=== PATIENT | female | born 1990 | race African-American/Black ===

== ENCOUNTER 2016-08-07 16:06 | Observation (INO) | payer OTHER ==
[2015-07-30 23:15] VITALS: BP 128/82
[2016-08-07] MEDS ORDERED: HYDROXYZINE PAMOATE 25 MG CAPSULE PO PRN (17:45)
== END 2016-08-07 20:10 | disposition home or self-care (01) ==
LOC: 3 SO LND 16:06
PROVIDERS: ADMIT Family Medicine; ATTEND Family Medicine
DX: O9A.213 Injury, poisoning and certain other consequences of external causes complicating pregnancy, third trimester (principal); R10.9 Unspecified abdominal pain; M54.9 Dorsalgia, unspecified; W18.2XXA Fall in (into) shower or empty bathtub, initial encounter; Y92.9 Unspecified place or not applicable; Z3A.00 Weeks of gestation of pregnancy not specified
CPT/HCPCS: G0378; G0379; Q0177

== ENCOUNTER 2016-08-13 04:32 | Observation (INO) | payer OTHER ==
[2015-07-30 23:15] VITALS: BP 128/82
[2016-08-13] MEDS: IV RINGERS,LACTATED 1000ML 1,000 ML IV SCH ×2 (06:13→08:34)
[2016-08-13] MEDS ORDERED: ONDANSETRON PF 4 MG/2 ML VIAL. IV PRN (06:45)
[2016-08-13] MEDS ORDERED: HYDROCODONE/APAP 5/325MG TABLET. PO ONE (11:30)
== END 2016-08-13 11:21 | disposition home or self-care (01) ==
LOC: 3 SO LND 04:32
PROVIDERS: ADMIT Family Medicine; ATTEND Family Medicine
DX: O62.9 Abnormality of forces of labor, unspecified (principal); Z3A.00 Weeks of gestation of pregnancy not specified
CPT/HCPCS: 96361; 96374; G0378; G0379; J2405; J7120

== ENCOUNTER 2016-08-16 21:19 | Inpatient (IN) | payer OTHER ==
[~2016-08-16] VITALS: Ht 154.9 cm; Wt 110.2 kg
[2016-08-16 21:38] LABS: BILIRUBIN,URINE NEGATIVE (NEG); GLUCOSE,URINE NEGATIVE (NEG); NITRITE,URINE NEGATIVE (NEG); PH,URINE 6.5; PROTEIN,URINE NEGATIVE (NEG-TRACE)
[2016-08-16 21:48] LABS: BACTERIA,URINE FEW /HPF (0-FEW); RBC,URINE 0 /HPF (0-2); SQUAMOUS EPITHELIAL CELL,UR MOD /LPF
[2016-08-16 22:09] LABS: NEG OBC AMNIO NEG; POS OBC AMNIO POS
[2016-08-16] MEDS ORDERED: ACETAMINOPHEN 325 MG TABLET. PO PRN (22:30)
[2016-08-16] MEDS ORDERED: OXYTOCIN 30 UNIT/500 ML PREMIX 500 ML IV PRN (22:30)
[2016-08-16] MEDS ORDERED: ONDANSETRON PF 4 MG/2 ML VIAL. IV PRN (22:30)
[2016-08-16] MEDS ORDERED: 0.9 % SODIUM CHLORIDE 10 ML DISP.SYRIN. IV PRN (22:30)
[2016-08-16] MEDS ORDERED: AMPICILLIN SODIUM 2 GM in IV NORMAL SALINE 100ML 100 ML IV ONE (22:30)
[2016-08-16] MEDS ORDERED: TERBUTALINE 1 MG/ML VIAL. SQ PRN (22:30)
[2016-08-16] MEDS ORDERED: BUTORPHANOL 2 MG/ML VIAL. IV PRN (22:30)
[2016-08-16] MEDS ORDERED: LIDOCAINE 1% PF 30 ML VIAL. INJ PRN (22:30)
[2016-08-16] MEDS ORDERED: ZOLPIDEM 5 MG TABLET. PO PRN (22:30)
[2016-08-16] MEDS: IV RINGERS,LACTATED 1000ML 1,000 ML IV SCH (22:44)
[2016-08-16 23:01] LABS: HEMATOCRIT 33.5 % (36.0-47.0); HEMOGLOBIN 11.2 g/dL (12.0-15.5); RED BLOOD COUNT 3.55 x10^6/uL (3.50-5.40); RED CELL DISTRIBUTION WIDTH 13.7 % (11.5-14.5); WHITE BLOOD COUNT 10.8 x10^3/uL (4.0-11.0)
[2016-08-16 23:19] VITALS: BP 137/77
[2016-08-17] MEDS: AMPICILLIN SODIUM 1 GM in IV NORMAL SALINE 50ML 50 ML IV SCH ×3 (02:33→15:17)
[2016-08-17] MEDS: OXYTOCIN 30 UNIT/500 ML PREMIX 500 ML IV PRN ×2 (06:06→10:47)
[2016-08-17] MEDS: IV RINGERS,LACTATED 1000ML 1,000 ML IV SCH ×2 (06:06→18:02)
--- NOTE | 2016-08-17 06:55 | PDOC1 ---
OB - History Hx of Present Care: Limited Care Ultrasounds: Normal mid trimester US Obstetrical Complications: None Medical Complications: None Past Family/Social History * Past Medical, Surgical, Family and Obstetric Histories reviewed from chart. Blood Type: B+ Rubella: Immune RPR/VDRL: Negative GBS Status: Positive HBsAG: Negative OB - Chief Complaint & HPI Date of Admission: Date of Admission: Aug 16, 2016 at 21:19 Chief Complaint/History : 4 Para: 3 EDC: Aug 28, 2016 EGA: 38.3 Reason for admission: rupture of membranes Admission Nurse Assessment Rev: No Problems: OB - Admission Exam Physical Exam Vitals: VS - Last 72 Hours, by Label Date Time Temp Pulse Resp B/P Pulse Ox O2 Delivery O2 Flow Rate FiO2 08/16/16 23:19 98.1 100 18 137/77 Room Air 98.1 HEENT: Normal, Nasal Mucosa Normal, Oropharynx Normal, Moist Membranes, Fontanelles Normal Heart: Regular Rate Lungs: Clear, Equal Abdomen: Gravid Extremities: Normal Pulses, No tenderness or swelling Reflexes: Normal Cervical Dilatation: 3cm Effacement: 50% Station: -2 Membranes: Ruptured Amniotic Fluid: Clear Heart Rate: Normal Accelerations: Accelerations Present Decelerations: No decelerations Short Term Variability: Present Reading Assistant Variability: Moderate Contractions on Admission: None A/P Pt is a 25yo @ 38.3wga admitted with SROM 1)SROM- pitocin started this am. 2)GBS POS- Ampicillin started last night Problems: PATRIZIA BOURGEOIS MD Aug 17, 2016 06:55
[2016-08-17] MEDS ORDERED: L&D EPIDURAL CASSETTE 100 ML EP ONE (17:23)
[2016-08-17] MEDS ORDERED: FENTANYL PF 100 MCG/2 ML VIAL. ONE (17:58)
[2016-08-17] MEDS ORDERED: LIDOCAINE 2% PF Vial for OR 5 ML VIAL. ONE (18:15)
[2016-08-17] MEDS ORDERED: ONDANSETRON PF 4 MG/2 ML VIAL. IV PRN (18:30)
[2016-08-17] MEDS ORDERED: ROPIVacaine 0.2% PF 10 ML VIAL. EPI ONE (18:30)
[2016-08-17] MEDS ORDERED: FENTANYL PF 100 MCG/2 ML VIAL. EPI ONE (18:30)
[2016-08-17] MEDS ORDERED: NALOXONE 0.4 MG/ML VIAL. IV PRN (18:30)
[2016-08-17] MEDS ORDERED: L&D EPIDURAL CASSETTE 100 ML EP PRN (18:30)
[2016-08-17] MEDS ORDERED: EPHEDRINE PF IN SALINE 50 MG/5 ML DISP.SYRIN. IV PRN (18:30)
--- NOTE | 2016-08-17 18:56 | PDOC ---
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
[2016-08-17] MEDS ORDERED: PHENYLEPH/MINERAL OIL/PETROLAT RECTAL OINTMENT 28GM TUBE. RC PRN (21:00)
[2016-08-17] MEDS ORDERED: ACETAMINOPHEN 325 MG TABLET. PO PRN (21:00)
[2016-08-17] MEDS ORDERED: HYDROCORTISONE 1% TOPICAL OINTMENT 30GM TUBE. TP PRN (21:00)
[2016-08-17] MEDS ORDERED: MAG HYDROX/ALUMINUM HYD/SIMETH 30 ML ORAL.SUSP PO PRN (21:00)
[2016-08-17] MEDS ORDERED: DIPHENHYDRAMINE HCL 25 MG CAPSULE PO PRN (21:00)
[2016-08-17] MEDS ORDERED: SIMETHICONE 80 MG TAB.CHEW PO PRN (21:00)
[2016-08-17] MEDS ORDERED: BENZOCAINE 20% TOPICAL AEROSOL SPRAY 57GM CAN. TP PRN (21:00)
[2016-08-17] MEDS ORDERED: OXYCODONE/APAP 5/325 TABLET. PO PRN ×2 (21:00)
[2016-08-17] MEDS ORDERED: DOCUSATE SODIUM 100 MG CAPSULE PO PRN (21:00)
[2016-08-17] MEDS ORDERED: MAGNESIUM HYDROXIDE 2,400 MG/30 ML ORAL.SUSP. PO PRN (21:00)
[2016-08-17] MEDS ORDERED: OXYTOCIN 30 UNIT/500 ML PREMIX 500 ML IV PRN (21:00)
[2016-08-17] MEDS: IBUPROFEN 800 MG TABLET. PO PRN (21:06)
[2016-08-17 21:10] VITALS: BP 127/68
[2016-08-17 22:13] VITALS: BP 119/59
[2016-08-17] MEDS ORDERED: DIPHTH,PERTUSS(ACELL),TET TOX 0.5 ML DISP.SYRIN. VAX IM ONE (23:00)
[2016-08-18 02:02] VITALS: BP 106/52
[2016-08-18 04:44] VITALS: BP 116/75
[2016-08-18] MEDS ORDERED: FERROUS SULFATE 325 MG TABLET PO SCH (08:00)
--- NOTE | 2016-08-18 11:37 | PDOC ---
OB Progress Note Date of Service 08/18/16 Time of Evaluation 1130 Date: 08/17/16 Time: 1839 Notes Pt says that she is doing well. Had large blood clot last night. Bleeding about same as period. is bottlefeeding. Pain is well controlled. OB VITAL SIGNS: Temperature (97.9F), Blood Pressure (116/75), Pulse (74) Lab Laboratory Tests Test 08/16/16 21:25 08/16/16 21:40 08/16/16 22:40 08/18/16 04:30 Urine Collection Type Unknown Urine Color Yellow Urine Clarity Clear Urine pH 6.5 Urine Specific [place] 1.025 Urine Protein Negativemg/dL (NEG-TRACE) Urine Glucose (UA) Negativemg/dL (NEG) Urine Ketones (Stick) Negativemg/dL (NEG) Urine Blood Negative (NEG) Urine Nitrite Negative (NEG) Urine Bilirubin Negative (NEG) Urine Urobilinogen Dipstick 1.0mg/dL (0.2 mg/dL) Urine Leukocyte Esterase Small (NEG) Urine RBC 0/HPF (0-2) Urine WBC 5-10/HPF (0-4) Urine Squamous Epithelial Cells Mod/LPF Urine Bacteria Few/HPF (0-FEW) Urine Mucus Marked/LPF Amniotic Fluid Swab Test Positive White Blood Count 10.8x10^3/uL (4.0-11.0) Red Blood Count 3.55x10^6/uL (3.50-5.40) Hemoglobin 11.2g/dL (12.0-15.5) Hematocrit 33.5% (36.0-47.0) 34.2% (36.0-47.0) Mean Corpuscular Volume 95fL (79-100) Mean Corpuscular Hemoglobin 32pg (25-35) Mean Corpuscular Hemoglobin Concent 34g/dL (31-37) Red Cell Distribution Width 13.7% (11.5-14.5) Platelet Count 230x10^3/uL (140-400) Laboratory Tests Test 08/18/16 04:30 Hematocrit 34.2% (36.0-47.0) Medications Current Medications Lactated Ringer's (Iv Lactated Ringers) 1,000 ml @ 125 mls/hr Q8H IV Last administered on 08/17/16t 18:02; Start 08/16/16 at 21:30; Stop 08/17/16 at 20:49 ; Status DC Sodium Chloride (Normal Saline Flush) 3 ml QSHIFT PRN IV AFTER MEDS AND BLOOD DRAWS; Start 08/16/16 at 22:30 Butorphanol Tartrate (Stadol) 2 mg PRN Q1HR PRN IV Severe labor pain; Start at 22:30; Stop 08/17/16 at 20:49; Status DC Acetaminophen (Tylenol) 650 mg PRN Q6HRS PRN PO MILD PAIN / TEMP; Start at 22:30 Ondansetron HCl (Zofran) 4 mg PRN Q4HRS PRN IV NAUSEA/VOMITING; Start 08/16/16 at 22:30; Stop 08/17/16 at 20:49; Status DC Zolpidem Tartrate (Ambien) 5 mg PRN QHS PRN PO INSOMNIA Last administered on 01:09; Start 08/16/16 at 22:30 Terbutaline Sulfate (Brethine) 0.25 mg 1X PRN PRN SQ SEE COMMENTS; Start at 22:30; Stop 08/17/16 at 20:49; Status DC Lidocaine HCl 30 ml 30 ml 1X PRN PRN INJ SEE COMMENTS; Start 08/16/16 at 22:30 ; Stop 08/17/16 at 20:49; Status DC Ampicillin Sodium 2 gm/Sodium Chloride 100 ml @ 200 mls/hr 1X ONCE IV Last administered on 08/16/16 22:44; Start 08/16/16 at 22:30; Stop 08/17/16 at 20:49 ; Status DC Ampicillin Sodium 1 gm/Sodium Chloride 50 ml @ 100 mls/hr Q4H IV Last administered on 08/17/16 15:17; Start 08/17/16 at 02:30; Stop 08/17/16 at 20:49 ; Status DC Oxytocin/Sodium Chloride 500 ml @ 0 mls/hr CONT PRN IV SEE I/O RECORD Last administered on 08/17/16 10:47; Start 08/16/16 at 22:30; Stop 08/17/16 at 20:49 ; Status DC Oxytocin/Sodium Chloride 500 ml @ 0 mls/hr CONT PRN PRN IV Post delivery bleeding; Start 08/16/16 at 22:30 Ropivacaine/ Fentanyl/NS (Bkjlnzmv-Acvkn-HI 3 Mcg-0.1%) 100 ml @ As Directed STK-MED ONCE EP Last administered on 08/17/16t 18:02; Start 08/17/16 at 17:23; Stop 08/17/16 at 20:49; Status DC Fentanyl Citrate (Fentanyl 2ml Vial) 100 mcg STK-MED ONCE .ROUTE ; Start at 17:58; Stop 08/17/16 at 20:49; Status DC Lidocaine HCl (Lidocaine Pf 2% Vial) 5 ml STK-MED ONCE .ROUTE ; Start 08/17/16 at 18:15; Stop 08/17/16 at 20:49; Status DC Ephedrine Sulfate 10 mg PRN Q2MIN PRN IV IF SBP<90; Start 08/17/16 at 18:30; Stop 08/17/16 at 20:49; Status DC Naloxone HCl (Narcan) 0.04 mg PRN Q1MIN PRN IV SEE COMMENTS; Start 08/17/16 at 18:30; Stop 08/17/16 at 20:49; Status DC Fentanyl Citrate 100 mcg 100 mcg 1X ONCE EPI ; Start 08/17/16 at 18:30; Stop at 20:49; Status DC Ropivacaine/ Fentanyl/NS (Nqpluisi-Wnwvo-MO 3 Mcg-0.1%) 100 ml @ 14 mls/hr CONT PRN EP PAIN; Start 08/17/16 at 18:30; Stop 08/17/16 at 20:49; Status DC Ondansetron HCl (Zofran) 4 mg PRN Q6HRS PRN IV NAUSEA/VOMITING; Start 08/17/16 at 18:30 Ropivacaine 20 ml 20 ml 1X ONCE EPI ; Start 08/17/16 at 18:30; Stop 08/17/16 at 20:49; Status DC Oxytocin/Sodium Chloride (Oxytocin Premix Infusion) 500 ml @ 62.5 mls/hr CONT PRN IV SEE I/O RECORD; Start 08/17/16 at 21:00; Stop 08/18/16 at 04:59; Status DC Acetaminophen (Tylenol) 650 mg PRN Q6HRS PRN PO MILD PAIN / TEMP; Start at 21:00 Ibuprofen (Motrin) 800 mg PRN Q8HRS PRN PO INFLAMMATION/PAIN PREVENTION Last administered on 08/17/16t 21:06; Start 08/17/16 at 21:00 Docusate Sodium (Colace) 100 mg PRN BID PRN PO CONSTIPATION; Start 08/17/16 at 21:00 Magnesium Hydroxide (Milk Of Magnesia) 2,400 mg PRN DAILY PRN PO CONSTIPATION; Start 08/17/16 at 21:00 Al Hydroxide/Mg Hydroxide (Mylanta Plus Xs) 30 ml PRN Q4HRS PRN PO HEARTBURN / GAS; Start 08/17/16 at 21:00 Simethicone (Gas-X) 80 mg PRN AFTMEALHC PRN PO GAS / BLOATING; Start 08/17/16 at 21:00 Diphenhydramine HCl (Benadryl) 25 mg PRN Q6HRS PRN PO ITCHING; Start 08/17/16 at 21:00 Benzocaine (Americaine) 1 spray PRN QID PRN TP TOPICAL PAIN; Start 08/17/16 at 21:00 Phenyleph/Shark Oil/Min Oil/Petrol (Preparation H) 1 valeria PRN QID PRN RC RECTAL PAIN; Start 08/17/16 at 21:00 Hydrocortisone (Cortaid) 1 valeria PRN QID PRN TP PERINEAL PAIN; Start 08/17/16 at 21:00 Ferrous Sulfate (Feosol) 325 mg BIDWMEALS PO ; Start 08/18/16 at 08:00 Info (Do NOT chart on this placeholder) 1 ea 1X PRN PRN MC SEE COMMENTS; Start 08/17/16 at 21:00 Oxycodone/ Acetaminophen (Percocet 5/325) 1 tab PRN Q4HRS PRN PO MILD PAIN; Start 08/17/16 at 21:00; Stop 08/18/16 at 11:24; Status DC Oxycodone/ Acetaminophen (Percocet 5/325) 2 tab PRN Q4HRS PRN PO MODERATE PAIN , SEVERE PAIN; Start 08/17/16 at 21:00; Stop 08/18/16 at 11:24; Status DC Diphtheria/ Tetanus/Acell Pertussis (Boostrix) 0.5 ml ONCE ONCE VAX IM ; Start 08/17/16 at 23:00; Stop 08/17/16 at 23:01; Status DC Exam GEN: NAD, AOx3 HEENT: MMM, EOMI, no scleral icterus/injection Cardiac: RRR, no M/R/G Lungs: CTAB Abd: fundus firm Ext: no erythema/edema LE bilaterally Assessment Pt is a 25yo [id number] s/p at 38.3wga 1)- pain well controlled with Ibuprofen 2)GBS+ s/p 5 doses of Ampicillin 3)SROM >24H with tachycardia PATRIZIA BOURGEOIS MD Aug 18, 2016 11:37
[2016-08-18 16:45] VITALS: BP 108/73
[2016-08-18] MEDS: IBUPROFEN 800 MG TABLET. PO PRN (19:33)
[2016-08-18 21:24] VITALS: BP 128/68
[2016-08-19 06:11] VITALS: BP 102/57
[2016-08-19] MEDS: IBUPROFEN 800 MG TABLET. PO PRN (08:36)
[2016-08-19 11:15] VITALS: BP 135/81
[2016-08-19] MEDS ORDERED: FERR325T72 PO (13:23)
[2016-08-19] MEDS ORDERED: IBUP-1060 PO (13:23)
[2016-08-19] MEDS ORDERED: DOCU-27 PO (13:23)
--- NOTE | 2016-08-19 13:26 | PDOC3 ---
OB DISCHARGE SUMMARY DATE OF ADMISSION: 08/17/16 DATE OF DISCHARGE: 08/19/16 REASON FOR ADMISSION: SROM PROBLEM LIST AT DISCHARGE Problems Medical Problems: (1) Vaginal delivery Status: Acute DISCHARGE DIAGNOSIS: Term Delivered DISCHARGE INFORMATION: Activity (As tolerated), Diet (Regular), Medications ( Ibuprofen 800mg po TID prn pain, Docusate 100mg po qday prn constipation, Ferrous Sulfate 325mg po qday), Instructions (Please follow up with Dr. Lugo for your tubal ligation. Please follow up with Dr. Galeana in 4-6 weeks for your routine visit, unless needing to be seen sooner), Discharge to (Home) HOSPITAL COURSE DISCHARGE PHYSICAL EXAM GEN: NAD, AOx3 HEENT: MMM, EOMI, no scleral icterus/injection Cardiac: RRR, no M/R/G Lungs: CTAB Abd: fundus firm Ext: no erythema/edema LE bilaterally Pt is a 25yo [id number] s/p at 38.3wga 1)- pain well controlled with Ibuprofen 2)GBS+ s/p 5 doses of Ampicillin 3)SROM >24H with tachycardia 4) control- pt is planning on getting BTL with PATRIZIA Mendoza MD Aug 19, 2016 13:26
[2016-08-19 16:40] VITALS: BP 125/75
== END 2016-08-19 17:07 | disposition home or self-care (01) | DRG 775 ==
LOC: 3 SO LND 21:19 → OBSVTOIN 21:19 → 3 SO LND 21:29
PROVIDERS: ADMIT Family Medicine; ATTEND Family Medicine
PROC: 10E0XZZ Delivery of Products of Conception, External Approach (ICD-10-PCS; principal; 2016-08-17)
PROC: 3E0S3CZ (ICD-10-PCS; 2016-08-17)
PROC: 00HU33Z Insertion of Infusion Device into Spinal Canal, Percutaneous Approach (ICD-10-PCS; 2016-08-17)
DX: O99.824 Streptococcus B carrier state complicating childbirth (principal); O42.92 Full-term premature rupture of membranes, unspecified as to length of time between rupture and onset of labor; Z3A.38 38 weeks gestation of pregnancy; Z37.0 Single live birth
CPT/HCPCS: 36415; 81001; 84112; 85014; 85027; 86593; 86850; 86900; 86901; 87086; 90715; G0378; J0290; J2590; J7120

== ENCOUNTER 2016-09-07 06:44 | Day surgery (SDC) | payer OTHER ==
[~2016-09-07 06:44] MED LIST: DOCU-27 PO; FERR325T72 PO; IBUP-1060 PO
[2016-09-07] MEDS ORDERED: IV RINGERS,LACTATED 1000ML 1,000 ML IV SCH (07:00)
[2016-09-07] MEDS ORDERED: PROCHLORPERAZINE 10 MG/2 ML VIAL. IV PRN (07:00)
[2016-09-07] MEDS ORDERED: HYDROMORPHONE 2 MG/ML VIAL. IV PRN (07:00)
[2016-09-07] MEDS ORDERED: ONDANSETRON PF 4 MG/2 ML VIAL. IV PRN (07:00)
[2016-09-07] MEDS ORDERED: FENTANYL PF 100 MCG/2 ML VIAL. IV PRN (07:00)
[2016-09-07] MEDS ORDERED: MORPHINE SULFATE 2 MG/ML DISP.SYRIN. IV PRN (07:00)
[2016-09-07] MEDS ORDERED: LIDOCAINE 1% 1 ML SYRINGE. ID PRN (07:00)
[2016-09-07 07:08] LABS: NEG OBC UR NEG; POS OBC UR POS
[2016-09-07] MEDS ORDERED: BUPIVACAINE-EPI 0.25%-1:200000 MPF 30 ML VIAL. ONE (07:15)
[2016-09-07] MEDS ORDERED: DESFLURANE > 120 MINUTES IH ONE (07:32)
[2016-09-07] MEDS ORDERED: ROCURONIUM 50 MG/5 ML VIAL. ONE (07:33)
[2016-09-07] MEDS ORDERED: SUCCINYLCHOLINE 200 MG/10 ML VIAL. ONE (07:33)
[2016-09-07] MEDS ORDERED: FENTANYL PF 100 MCG/2 ML VIAL. ONE (07:33)
[2016-09-07] MEDS ORDERED: GLYCOPYRROLATE 1 MG/5 ML VIAL. ONE (07:33)
[2016-09-07] MEDS ORDERED: MIDAZOLAM HCL/PF 2 MG/2 ML VIAL. ONE (07:33)
[2016-09-07] MEDS ORDERED: NEOSTIGMINE METHYLSULFATE 5 MG/5 ML SYRINGE. ONE (07:34)
[2016-09-07] MEDS ORDERED: PROPOFOL 20 ML IV ONE (07:34)
[2016-09-07] MEDS ORDERED: DEXAMETHASONE SOD PHOS 20 MG/5 ML VIAL. ONE (07:34)
[2016-09-07] MEDS ORDERED: ONDANSETRON PF 4 MG/2 ML VIAL. ONE (07:34)
[2016-09-07] MEDS ORDERED: LIDOCAINE 2% 100 MG/5 ML SYRINGE. ONE (07:34)
--- NOTE | 2016-09-07 08:37 | PDOC ---
BRIEF OPERATIVE NOTE Pre-Op Diagnosis Sterilization Post-Op Diagnosis Same Procedure Performed [facility] Surgeon Dr. Lugo Anesthesia Type: General Blood Loss less than 5 ml Specimens Obtained none Findings nml uterus, nml fallopian tubes and ovaries tito. Complications none Additional Remarks ptRAY Kaye Jr, MD Sep 07, 2016 08:37
--- NOTE | 2016-09-07 08:38 | DISCH ---
DISCHARGE INSTRUCTIONS Condition on Discharge Condition on Discharge: Stable Activity After Discharge Activity Instructions for Disc: Activity as tolerated Lifting Instructions after Dis: No heavy lifting Driving Instructions after Dis: Do not drive today Diet after Discharge Diet after Discharge: Regular Contacting the [facility] after DC Call your doctor for: Concerns you may have Follow-Up Follow up with: Dr. Lugo in 1 week. RAY LUGO Jr, MD Sep 07, 2016 08:38
[2016-09-07] MEDS ORDERED: KETOROLAC TROMETHAMINE 30 MG/ML INJ. ONE (08:43)
[2016-09-07] MEDS ORDERED: OXYC-323 PO (08:51)
[2016-09-07] MEDS: FENTANYL PF 100 MCG/2 ML VIAL. IV PRN ×2 (08:55→09:12)
[2016-09-07] MEDS ORDERED: OXYCODONE/APAP 5/325 TABLET. PO ONE ×2 (09:00)
--- NOTE | 2016-09-07 09:37 | OP ---
DATE OF SURGERY: 09/07/2016 PREOPERATIVE DIAGNOSIS: Sterilization. POSTOPERATIVE DIAGNOSIS: Sterilization. PROCEDURE: Laparoscopic BTL with Filshie clips. SURGEON: Cali Lugo MD ANESTHESIA: GETA. ESTIMATED BLOOD LOSS: Less than 5 mL. COMPLICATIONS: None. FINDINGS: Normal uterus, normal fallopian tubes and ovaries bilaterally. SUMMARY: A 25-year-old 4, para 4, four weeks status post vaginal delivery. The patient had a urine hCG that was positive, which is expected during this . She was abstinent since her delivery. The patient was counseled on risks, benefits and expectations of laparoscopic tubal ligation as well as the failure rate of less than 1%. She voiced clear understanding to proceed. DESCRIPTION OF PROCEDURE: The patient was taken to surgery suite and placed in dorsal lithotomy position where she was prepped with Betadine for vaginal prep and ChloraPrep for abdominal prep. After adequate anesthesia, bivalve speculum was placed. Anterior lip of the cervix grasped with a single-toothed tenaculum. The acorn uterine manipulator was placed. The bivalve speculum was then removed. Attention was now placed on abdomen. Small transverse skin incision was made just below the umbilicus with scalpel. Veress needle was then placed through the infraumbilical incision site. The abdomen was allowed to insufflate up to 1-1/2 liters of CO2 gas. The Veress needle was then removed. A 5-mm trocar was placed. The scope was positioned. The uterus appeared mildly enlarged due to period. Fallopian tubes and ovaries appeared normal bilaterally. A second incision was made in the left lower quadrant with a scalpel in which an 8-mm trocar was placed. The Filshie clip applicator was then utilized to place a Filshie clip in the isthmus region of the left fallopian tube totally occluding the fallopian tube. Same process took place with the right fallopian tube. The trocars were then removed under direct visualization. The abdomen was allowed to deflate as much as possible along with mechanical manipulation. The two skin incisions were reapproximated using 4-0 Vicryl suture in subcuticular manner. A 0.25% Marcaine with epinephrine was injected at each incision site. Uterine acorn manipulator and single-toothed tenaculum were then removed. The patient tolerated the procedure well and was taken to recovery in stable condition. Sponge and needle counts correct x 3. CALI LUGO MD DR: MICHAEL/willian JOB#: [id number] / [id number]
[2016-09-07 09:50] VITALS: BP 143/93
== END 2016-09-07 10:13 | disposition home or self-care (01) ==
LOC: SURG 06:44
PROVIDERS: ATTEND Obstetrics & Gynecology
DX: Z30.2 Encounter for sterilization (principal); E66.9 Obesity, unspecified; Z72.0 Tobacco use
CPT/HCPCS: 58671; 81025; A4215; J1100; J1885; J2250; J2405; J2704; J2710; J3010; J3490; J7120; J0330; J0780